=== PATIENT | female | born 1965 | race Caucasian/White ===

== ENCOUNTER 2019-01-20 09:13 | Day surgery (SDC) | payer OTHER ==
[~2019-01-20] VITALS: Ht 154.9 cm; Wt 62.4 kg
[~2019-01-20 09:13] MED LIST: ATOR20TA38 PO; SIMVASTATIN PO
[2019-01-20 10:18] VITALS: Ht 154.9 cm; Wt 62.4 kg
[2019-01-20 10:25] VITALS: BP 128/64; PULSE 55; RESP 19
[2019-01-20 11:14] VITALS: BP 126/58; RESP 20
[2019-01-20] MEDS ORDERED: FENTAnyl 50 MCG/ML VIAL ONE (11:18)
[2019-01-20] MEDS ORDERED: MIDAZOLAM 1 MG/ML 2 ML INJ ONE ×2 (11:18)
== END 2019-01-20 13:05 | disposition home or self-care (01) ==
LOC: GIL 09:13
PROVIDERS: ATTEND Internal Medicine Gastroenterology
DX: Z12.11 Encounter for screening for malignant neoplasm of colon (principal)
CPT/HCPCS: 45378; J2250; J3010